=== PATIENT | male | born 1965 | race Caucasian/White ===

== ENCOUNTER 2021-11-21 11:09 | Observation (INO) ==
[2021-11-21 11:30] VITALS: BMI 32.3
[2021-11-21] MEDS ORDERED: NS 1,000 ML IV 1,000 ML IV ONE ×2 (11:38→12:56)
--- NOTE | 2021-11-21 11:38 | DR.CP ---
HPI Time Seen Time Seen by Provider: 11/21/21 11:33 PCP Primary Care Physician: NUHA Berrios Chief Complaint Doctor Comments: 56 y/o male presents for evaluation. Pt recently had BP meds increased. Has added Carvedilol x past 3 days. Was sitting in his shop, became lightheaded, passed out, vomited once on coming around. Checked his BP, and it was low. Currently feeling better. Pt with a h/o HTN, had cataract surgery past week. + drinks Etoh on a daily basis, up to a 12 pack/day. Has already had 2 beers this am (before 11 am, on a Monday). Denies recent illness. No fever, cough, dyspnea, persistent vomiting or diarrhea. No chest pain. Chief Complaint:: EMS STATES PATIENT HAD A SYNCOPAL EPISODE. PATIENT STATES HE S TARTED A NEW BLOOD PRESSURE MEDICATION. PATIENT STATES AFTER TAKING HIS MEDICATIONS THIS MORNING HE WENT OUT AND [place]. PATIENT'S FAMILY STATES UPON WAKING UP PATIENT VOMITED. PATIENT THEN WENT INTO THE HOUSE AND TOOK HIS BLOOD PRESSURE AND NOTED HIS BLOOD PRESSURE TO BE 55/30'S. COVID-19 Coronavirus risk:travel/contact w/high risk person: No Has patient experienced Coronavirus symptoms: No Reviewed Nurses Notes Review: Yes Source History Provided: Patient and EMS Mode of Arrival Mode of Arrival: EMS Timing Onset of Chief Complaint: 11/21/21 PMH PMH Past Medical History: Yes Past Medical History: Gout and Hypertension Past Surgical History: Yes Past Surgical History Comment: CATRACTS, CYST REMOVAL Family History History of Family Medical Conditions: No Social History Does patient currently use any type of tobacco product: Yes Have you used tobacco products in the last 12 months: Yes Type of Tobacco Use: CHEW Does any household member use tobacco: Yes Alcohol Use: Heavy and DAILY Do you use any recreational Drugs:: No Lives With: Alone Lives Where: Home Travel Risk Coronavirus risk:travel/contact w/high risk person: No Has patient experienced Coronavirus symptoms: No Infectious screening In the last 2 months have you had wt loss of >10#?: NO Have you had fever, night sweats or hemotysis?: No Have you traveled outside the country in the last 6 months?: No Isolation: Standard ROS Review of Systems Constitutional: No Symptoms Reported Eyes: No Symptoms Reported ENTM: No Symptoms Reported Respiratoy: No Symptoms Reported Cardiovascular: No Symptoms Reported Gastrointestinal/Abdominal: No Symptoms Reported Genitourinary: No Symptoms Reported Neurological: No Symptoms Reported Musculoskeletal: No Symptoms Reported Integumentary: No Symptoms Reported Hematologic/Lymphatic: No Symptoms Reported Psychiatric: No Symptoms Reported All Other Systems: Reviewed and Negative PE Vitals Vitals: Temperature 97.8 F Pulse Rate 78 Respiratory Rate 20 Blood Pressure 130/76 O2 Sat by Pulse Oximetry 100 General Limitations: No Limitations General Appearance: Alert and In No Apparent Distress Head Head Exam: Normal Inspection, Atraumatic and Normocephalic Eyes Eye exam: PERRL and EOMI ENT ENT Exam: Mucous Membranes Moist Chest Chest Inspection: Normal Inspection Respiratory Respiratory Exam: Normal Lung Sounds Bilat; negative Accessory Muscle Use and Respiratory Distress Respiratory Exam: Bilateral: Clear to Auscultation Cardiovascular Cardiovascular Exam: Regular Rate, Normal Rhythm and Normal Heart Sounds Abdominal Exam Abdominal Exam: Normal Bowel Sounds and Soft; negative Tenderness Extremities Extremities Exam: Normal Inspection and Full ROM; negative Tenderness and Edema Neurologic Neurological Exam: Alert, Oriented X3 and CN II-XII Intact; negative Motor Sen michelle Deficit Psychiatric Psychiatric Exam: Normal Affect Skin Skin Exam: Warm and Dry MDM Additional Information Findings: DDx: hypotension, dehydration, med reaction, cardiac arrhythmia. COURSE Treatment Treatment: 56 y/o male with syncopal episode this am. BP low initially, doing better now. Recently had BP med added. W/u initiated. Given IV fluids. 1404 - w/u shows Na to be low at 122. Rest of w/u unremarkable. Recommend admission for further correction of his sodium. Discussed with Dr Lord, covering, accepts the admission. 1425 - Covid + on screening test for admission. [facility] Labs Reviewed Laboratory Results Reviewed?: Yes Result Diagrams: 11/21/21 11:53 11/21/21 11:53 Laboratory: WBC 5.5 X10^3/uL (3.6-10.0) 11/21/21 11:53 RBC 4.50 X10^6/uL (4.7-6.0) L 11/21/21 11:53 Hgb 13.9 g/dL (13.5-18.0) 11/21/21 11:53 Hct 39.7 % (42.0-54.0) L 11/21/21 11:53 MCV 88.1 fL (80.0-100.0) 11/21/21 11:53 MCH 30.9 pg (27.0-34.0) 11/21/21 11:53 MCHC 35.1 g/dL (33.0-35.0) H 11/21/21 11:53 RDW 12.6 % (11.6-16.5) 11/21/21 11:53 Plt Count 206 X10^3/uL (150.0-450.0) 11/21/21 11:53 MPV 7.8 fL (7.4-11.0) 11/21/21 11:53 Neut % (Auto) 61.1 % (42.0-75.0) 11/21/21 11:53 Lymph % (Auto) 25.4 % (21.0-51.0) 11/21/21 11:53 [place] % (Auto) 12.0 % (0.0-13.0) 11/21/21 11:53 Eos % (Auto) 1.1 % (0.9-2.9) 11/21/21 11:53 Baso % (Auto) 0.4 % (0.2-1.0) 11/21/21 11:53 Neut # (Auto) 3.3 x10^3/uL (2.2-4.8) 11/21/21 11:53 Lymph # (Auto) 1.4 X10^3/uL (1.3-2.9) 11/21/21 11:53 [place] # (Auto) 0.7 x10^3/uL (0.3-0.8) 11/21/21 11:53 Eos # (Auto) 0.1 x10^3/uL (0.0-0.2) 11/21/21 11:53 Baso # (Auto) 0.0 X10^3/uL (0.0-0.1) 11/21/21 11:53 Absolute Nucleated RBC 0.0 /100WBC 11/21/21 11:53 Sodium 122 mmol/L (136-145) L* 11/21/21 11:53 Corrected Sodium TNP 11/21/21 11:53 Potassium 3.4 mmol/L (3.5-5.1) L 11/21/21 11:53 Chloride 87 mmol/L (98-107) L 11/21/21 11:53 Carbon Dioxide 24.0 mmol/L (21-32) 11/21/21 11:53 BUN 15 mg/dL (7-18) 11/21/21 11:53 Creatinine 1.48 mg/dL (0.70-1.30) H 11/21/21 11:53 Est GFR (MDRD) Af Amer > 60 (>60) 11/21/21 11:53 Est GFR (MDRD) Non-Af 53 (>60) L 11/21/21 11:53 Glucose 100 mg/dL (65-99) H 11/21/21 11:53 Calcium 7.9 mg/dL (8.5-10.1) L 11/21/21 11:53 Corrected Calcium TNP 11/21/21 11:53 Total Bilirubin 0.80 mg/dL (0.2-1.0) 11/21/21 11:53 AST 32 Units/L (15-37) 11/21/21 11:53 ALT 32 Units/L (12-78) 11/21/21 11:53 Alkaline Phosphatase 69 Units/L (46-116) 11/21/21 11:53 Creatine Kinase 183 Units/L (39-308) 11/21/21 11:53 CK-MB (CK-2) 2.3 ng/mL (0-4.0) 11/21/21 11:53 CK/CKMB % Calc 1.3 % (<4) 11/21/21 11:53 Troponin I High Sens 5.5 ng/L (4.0-60.0) 11/21/21 11:53 Total Protein 7.1 g/dL (6.4-8.2) 11/21/21 11:53 Albumin 3.6 g/dL (3.4-5.0) 11/21/21 11:53 Globulin 3.5 g/dL (2.5-4.5) 11/21/21 11:53 Albumin/Globulin Ratio 1.0 Ratio (1.1-2.1) L 11/21/21 11:53 Lipase 260 Units/L (73-393) 11/21/21 11:53 Other Results Comments: + sodium low at 122 XRAY XRAY Interpreted by: Radiologist X-ray Results: no acute abnormalities EKG Rate: 77 [place]: Normal Rhythm: NSR Block: None Hypertrophy: LAE ST: Nonsp Opioid Opioid Risk Tool Age (Kelvin box if 16-45): No History of Preadolescent Sexual Abuse: No Total: 0 Total Score Risk Category: Low Risk Copyright: Jose ELLER predicting aberrant behaviors Diagnosis Discharge Problem: Acute hyponatremia Syncope Qualifiers: Encounter type: initial encounter Narrative Support Text: Covid +
[2021-11-21] MEDS ORDERED: NS 1,000 ML IV 1,000 ML ONE ×2 (11:50→12:55)
[2021-11-21 12:06] LABS: BASOPHILS % (AUTO) 0.4 % (0.2-1.0); EOSINOPHILS # (AUTO) 0.1 x10^3/uL (0.0-0.2); EOSINOPHILS % (AUTO) 1.1 % (0.9-2.9); HEMATOCRIT 39.7 % (42.0-54.0); HEMOGLOBIN 13.9 g/dL (13.5-18.0); LYMPHOCYTES # (AUTO) 1.4 X10^3/uL (1.3-2.9); LYMPHOCYTES % (AUTO) 25.4 % (21.0-51.0); MEAN CORPUSCULAR HEMOGLOBIN 30.9 pg (27.0-34.0); MEAN CORPUSCULAR HGB CONC 35.1 g/dL (33.0-35.0); MEAN CORPUSCULAR VOLUME 88.1 fL (80.0-100.0); MEAN PLATELET VOLUME 7.8 fL (7.4-11.0); MONOCYTES # (AUTO) 0.7 x10^3/uL (0.3-0.8); NEUTROPHILS # (AUTO) 3.3 x10^3/uL (2.2-4.8); NEUTROPHILS % (AUTO) 61.1 % (42.0-75.0); RED CELL DISTRIBUTION WIDTH 12.6 % (11.6-16.5); WHITE BLOOD COUNT 5.5 X10^3/uL (3.6-10.0)
[2021-11-21 12:24] LABS: ALANINE AMINOTRANSFERASE 32 Units/L (12-78); ALBUMIN 3.6 g/dL (3.4-5.0); ALKALINE PHOSPHATASE 69 Units/L (46-116); ASPARTATE AMINO TRANSFERASE 32 Units/L (15-37); BLOOD UREA NITROGEN 15 mg/dL (7-18); CALCIUM 7.9 mg/dL (8.5-10.1); CHLORIDE 87 mmol/L (98-107); CKMB % 1.3 % (<4); CREATINE KINASE 183 Units/L (39-308); CREATINE KINASE MB 2.3 ng/mL (0-4.0); CREATININE 1.48 mg/dL (0.70-1.30); LIPASE 260 Units/L (73-393); TOTAL PROTEIN 7.1 g/dL (6.4-8.2); eGFR NON BLACK RACES 53 (>60)
[2021-11-21 12:27] LABS: SODIUM 122 mmol/L (136-145)
--- NOTE | 2021-11-21 14:52 | RAD ---
HISTORYSyncopeSTUDYAP chestCOMPARISONNoneFINDINGSHeart size upper-normal with clear lungs and pleural spaces. There is no evidence for CHF, neoplasm or pneumonia.IMPRESSIONNo acute chest findings.Electronically signed by: MARCO VELASCO (November 21, 2021 14:51:06)
[2021-11-21] MEDS: NS 1,000 ML IV 1,000 ML IV SCH (17:16)
[2021-11-21] MEDS: COREG TAB 3.125 MG PO SCH (21:21)
[2021-11-22] MEDS: NS 1,000 ML IV 1,000 ML IV SCH ×2 (00:12→06:29)
[2021-11-22 05:16] LABS: BASOPHILS % (AUTO) 0.4 % (0.2-1.0); EOSINOPHILS % (AUTO) 0.7 % (0.9-2.9); HEMATOCRIT 38.7 % (42.0-54.0); HEMOGLOBIN 13.5 g/dL (13.5-18.0); LYMPHOCYTES % (AUTO) 21.5 % (21.0-51.0); MEAN CORPUSCULAR HEMOGLOBIN 30.8 pg (27.0-34.0); MEAN CORPUSCULAR HGB CONC 34.8 g/dL (33.0-35.0); MEAN CORPUSCULAR VOLUME 88.5 fL (80.0-100.0); MEAN PLATELET VOLUME 8.1 fL (7.4-11.0); MONOCYTES # (AUTO) 0.5 x10^3/uL (0.3-0.8); MONOCYTES % (AUTO) 11.2 % (0.0-13.0); NEUTROPHILS % (AUTO) 66.2 % (42.0-75.0); RED BLOOD COUNT 4.37 X10^6/uL (4.7-6.0); RED CELL DISTRIBUTION WIDTH 12.8 % (11.6-16.5); WHITE BLOOD COUNT 4.6 X10^3/uL (3.6-10.0)
[2021-11-22 05:44] LABS: ALANINE AMINOTRANSFERASE 25 Units/L (12-78); ALBUMIN 3.1 g/dL (3.4-5.0); ALKALINE PHOSPHATASE 62 Units/L (46-116); ASPARTATE AMINO TRANSFERASE 25 Units/L (15-37); BLOOD UREA NITROGEN 12 mg/dL (7-18); CALCIUM 7.8 mg/dL (8.5-10.1); CARBON DIOXIDE 25.1 mmol/L (21-32); CHLORIDE 98 mmol/L (98-107); COR CA(FOR HYPOALB) 8.5 mg/dL (8.5-10.1); CREATININE 1.07 mg/dL (0.70-1.30); SODIUM 131 mmol/L (136-145); TOTAL PROTEIN 6.3 g/dL (6.4-8.2); eGFR NON BLACK RACES > 60 (>60)
[2021-11-22 07:53] VITALS: BP 150/84
[2021-11-22] MEDS: COREG TAB 3.125 MG PO SCH (08:42)
[2021-11-22] MEDS ORDERED: ZYLOPRIM PO SCH (09:00)
[2021-11-22] MEDS ORDERED: LOVENOX INJ 40 MG SYR SC SCH (10:00)
[2021-11-22] MEDS ORDERED: IVERMECTIN PO NR (10:03)
[2021-11-22] MEDS ORDERED: BENICAR TAB 40 MG PO SCH (11:00)
== END 2021-11-22 12:35 | disposition home or self-care (01) | DRG 640 ==
LOC: ER 11:10 → MED/SURG 14:28 → INTOOBSV 14:28 → MED/SURG 15:22
PROVIDERS: ADMIT Obstetrics & Gynecology Obstetrics; ATTEND Obstetrics & Gynecology Obstetrics